=== PATIENT | female | born 1990 | race Caucasian/White ===

== ENCOUNTER 2016-12-01 08:00 | Inpatient (IN) | payer OTHER ==
[2016-12-01] MEDS ORDERED: CITRIC ACID/SODIUM CITRATE 30 ML UNIT-DOSE CUP PO ONE (08:24)
[2016-12-01] MEDS ORDERED: ELECTROLYTE-148 SOLN 500 ML IV ONE (08:24)
[2016-12-01] MEDS ORDERED: ELECTROLYTE-148 SOLN 1,000 ML IV SCH (08:30)
[2016-12-01 08:53] VITALS: BMI 36.6
--- NOTE | 2016-12-01 09:12 | HP ---
Past Medical History - Primary Care Physician PCP:: Olive Huff - Admission Chief Complaint: 26 yrs 39 weeks , previous c/sx2 requests for repeat c/ s & voluntory sterlization . History of Present Illness: PNC at , [facility] ,. wt gain 28 lbs work up: O pos, Hbsag neg, Rubella pos, Quant, neg, RPR nr, Hiv neg, Gbs neg , pap 12/06 neg . h/o PNGT 153. 3 hr GTT 135, 207, 192, 193 . GDM controlled by Diet & Po Glyburide 2.5 mg bid ( med started on 11/04/16) . MFM sono for serial growth were done & bgm monitoring, bpp & nst done by mfm office NT screen neg, Modified Sequential neg. 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 Weeks Gestation by Dates: 40.6 ...EDC by Dates: 11/25/16 ...EDC by Sono: 12/04/16 Heme/Onc: Yes: Anemia (po iron & pnv) Infectious Disease: No: STD's Psych: No: Addictions, Anxiety, Bipolar, Depression Endocrine: Yes: Other (GDM on diet & Po Glyburide). No: Diabetes Insipidus, Diabetes Mellitus, Hyperthyroidism, Hypothyroidism - Past Surgical History Past Surgical History: Yes: (04/2009, 12/2012) Hx Myomectomy: No Hx Transabdominal Cerclage: No - Smoking History Smoking history: Never smoked Have you smoked in the past 12 months: No Aproximately how many cigarettes per day: 0 - Alcohol/Substance Use Hx Alcohol Use: No History of Substance Use: reports: None - Social History History of Recent Travel: No Home Medications - Allergies Allergies/Adverse Reactions: Allergies Allergy/AdvReac Type Severity Reaction Status Date / Time No Known Allergies Allergy Verified 12/01/16 08:34 - Home Medications Home Medications: Ambulatory Orders Vit/Iron Fumarate/FA [ Tablet] 1 tab PO DAILY 07/28/16 Glyburide/Metformin HCl [Glyburide-Metformin 2.5-500 mg] 2.5 mg PO BID 12/01/16 Physical Exam - Maternity Vital Signs: Vital Signs Temperature 97.5 F L 12/01/16 08:46 Pulse Rate 70 12/01/16 08:46 Respiratory Rate 20 12/01/16 08:46 Blood Pressure 123/75 12/01/16 08:46 O2 Sat by Pulse Oximetry (%) Constitutional: Yes: Well Nourished, Obese Eyes: Yes: WNL HENT: Yes: WNL, Normocephalic Neck: Yes: WNL, Rigid Cardiovascular: Yes: Regular Rate and Rhythm Lungs: Clear to auscultation Breast(s): Yes: WNL - Abdominal Exam/OB Fundal Height: 40 Number of Fetuses: Single Presentation: Vertex Contractions: Yes Regularity: Irregular Intensity: Unaware Monitor Mode: External Heart Rate (range): 130 Heart Rate Location: Midline Category: I Accelerations: Uniform Decelerations: None - Vaginal Exam/OB Vaginal Bleediing: No Speculum Exam: No Dilatation (cm): close Effacement (%): unefface Presentation: Vertex/Position Station: -3 - Physical Exam Musculoskeletal: Yes: WNL Extremities: Yes: WNL. No: Calf Tenderness Edema: LLE: 1+, RLE: 1+ Integumentary: Yes: Incision (pfannensteil scar) Deep Tendon Reflex Grade: Normal +2 ...Motor Strength: WNL Psychiatric: Yes: WNL, Alert, Oriented - Labs Lab Results: Laboratory Tests 11/29/16 11/29/16 11/29/16 14:40 14:40 14:40 WBC 7.5 RBC 4.46 D Hgb 11.7 D Hct 35.7 D MCV 80.1 MCHC 32.7 RDW 15.5 Plt Count 137 Neutrophils % 75.4 Lymphocytes % 18.1 Monocytes % 5.9 Eosinophils % 0.3 D Basophils % 0.3 INR 1.02 Sodium Potassium Chloride Carbon Dioxide Anion Gap BUN Creatinine POC Glucometer Random Glucose AST ALT Urine Protein Negative Urine Glucose (UA) Negative Urine Ketones Negative RPR Titer 11/29/16 11/29/16 12/01/16 14:40 14:40 08:16 WBC RBC Hgb Hct MCV MCHC RDW Plt Count Neutrophils % Lymphocytes % Monocytes % Eosinophils % Basophils % INR Sodium 139 Potassium 4.1 Chloride 106 Carbon Dioxide 23 Anion Gap 10 BUN 11 D Creatinine 0.5 L POC Glucometer 72 Random Glucose 125 H AST 15 D ALT 18 Urine Protein Urine Glucose (UA) Urine Ketones RPR Titer Nonreactive Problem List - Problems (1) with 39 completed weeks gestation Code(s): Z3A.39 - 39 WEEKS GESTATION OF (2) Previous section complicating Code(s): O34.21 - MATERNAL CARE FOR SCAR FROM PREVIOUS * DO NOT USE * (3) Gestational diabetes mellitus (GDM) controlled on oral hypoglycemic drug Code(s): O24.419 - GESTATIONAL DIABETES MELLITUS IN , UNSP CONTROL Qualifiers: Trimester: third trimester Qualified Code(s): O24.419 - Gestational diabetes mellitus in , unspecified control (4) Multiparity Code(s): Z64.1 - PROBLEMS RELATED TO MULTIPARITY Assessment/Plan 39 weeks, previousc/sx2, voluntory sterlization Plan repeat c/section & BTL
[2016-12-01] MEDS ORDERED: IBUPROFEN 800 MG/8 ML IJ IVPB PRN (11:43)
[2016-12-01] MEDS ORDERED: METHYLERGONOVINE MALEATE 0.2 MG/1 ML AMP IM PRN (11:43)
[2016-12-01] MEDS ORDERED: ONDANSETRON 4 MG/2 ML VIAL IVPB PRN (11:53)
--- NOTE | 2016-12-01 11:55 | PN ---
Delivery - Delivery Section: Repeat, Low Flap Transverse (BTL, Lysis of Omental adhesions) Type of Anesthesia: Spinal Episiotomy/Laceration: None EBL (cc): 500 (hemphill out put 200 ml nerissa color ) Delivery, Single - Stages of Labor Date of Delivery: 12/01/16 Time of Delivery: 10:55 Time Placenta Delivered: 10:56 Placenta: Yes: Manual Removal, Uterine Exploration - Condition of Infant Plumbing And Heating Mechanic/Building Maintenance Technician Present: Yes Name: Groening,Jesenia Gender: Female Weight: 8 lb 10 oz Position: Right, OT Total Hours ROM (Hrs/Mins): 0hrs 2min - 1 Minute Total Score: 9 5 Minutes Total Score: 9 - Feeding Plan Initial Plan: Elected not to breastfeed exclusively throughout hospitalization Remarks - Remarks Remarks: 26 yrs : ( Indication ) 39 weeks iup, previous c/sx2, Multiparity , requests repeat c/s & voluntory sterlization .. PNC at [address] [place] [address] . gbs neg GDM controlled with diet & Glyburide 2.5 mg po bid
--- NOTE | 2016-12-01 12:00 | OP ---
Operative Note - Note: Operative Date: 12/01/16 Pre-Operative Diagnosis: 39 weeks, Previous C/Sx2, Multiparity,requests for repeat c/s Operation: Repeat LFTC/S + BTL Findings: 10.55am Baby Girl, 9/9 , wt 8'10" , Ht 20" . both tubes & ovaries normal both tubes were ligated twice with plain 2/0 plain catgut , portion above ligature cut & sent for pathology . Omental adhesions to parietal peritoneum & bladder peritoneum were lysed Surgeon: Olive Huff Branch Associate Teller: Tom Wheeler Anesthesiologist/FORMING PRESS OPERATOR: Satish Cat Anesthesia: Spinal Specimens Removed: placenta. cord blood Estimated Blood Loss (mls): 500 Drains, Volume Out (mls): 200 (hemphill output, nerissa color ) Fluid Volume Replaced (mls): 2,200 (iv Ancef prior to incision was given ) Operative Report Dictated: Yes
[2016-12-01] MEDS ORDERED: OXYTOCIN 20 UNITS in 0.9% NS 1,000 ML IV SCH (12:15)
[2016-12-01] MEDS ORDERED: morphine SULFATE/Preservative Free 0.5 MG/ML (1cc Syringe) SPIN ONE (12:15)
[2016-12-01] MEDS ORDERED: CEFAZOLIN 1 GM/D5W 50 ML IVPB SCH (18:00)
[2016-12-01] MEDS: CEFAZOLIN (PRE-DOCKED) 50 ML IVPB SCH (18:03)
--- NOTE | 2016-12-01 18:39 | OP ---
DATE OF OPERATION: 12/01/2016 PREOPERATIVE DIAGNOSIS: At 39 weeks; previous section x2; multiparity; request for repeat section. OPERATION DONE: Repeat low-flap transverse section and bilateral tubal ligation and lysis of omental adhesions. SURGEON: Olive Huff MD GAS ENGINE OPERATOR SURGEON: MEETA Michaud ANESTHESIOLOGIST: Satish Cat MD ANESTHESIA: Spinal. FINDINGS: This is a 26-year-old, 4, para 2-0-1-2, previous 2 sections, not in labor, and patient is obese, weight is 213 pounds. PROCEDURE: Patient taken to operating room table and abdomen was shaved, prepped, Mccoy catheter was placed. Spinal anesthesia was given. She was placed in supine position. The abdomen was painted with ChloraPrep and draped in the usual manner and then Pfannenstiel incision was made through previous scar, skin, subcutaneous tissue. Anterior rectus sheath was incised transversely. Bleeding points were clamped and cauterized. Rectus muscle was from the rectus sheath and then parietal peritoneum was opened vertically. There were omental adhesions around the parietal peritoneum in the left side, which were clamped, cut and ligated and the omentum was pushed down and the lower segment was straightened, cleared off, and lower segment peritoneum was incised transversely and the bladder was pushed down and amniotic fluid was cleared. Baby was delivered from ROT position at 10:55 a.m. was 9 and 9, baby girl. The baby's weight is [address] Jay, the assistant case manager, was present in the room. Placenta was removed completely with the membranes. Before placenta removed, cord blood was collected and sent to the lab. The uterine cavity was cleaned and then uterine incision was closed in 2 layers, 1st layer with a continuous locking with Biosyn 0 suture, 2nd layer was closed with continuous locking suture and vertical mattress sutures were taken in 2nd layer. Hemostasis was noted and then omental adhesion from the bladder peritoneum, lysis was done by clamping and cutting, and then also from the right side, the parietal peritoneum also omental adhesions were lysis was done by clamping, cutting and ligating. Irrigation was done and both ovaries were normal. Sponge, instrument, needle count was correct. Before closure, both the tubes were ligated and cut. First the right side tube, it was in the mid ampullary portion the tube was doubly ligated with a plain 2-0 catgut and a portion of the tube was cut, sent for pathology. Endosalpinx was cauterized. Similar procedure was done also on the right tube. Hemostasis was noted. The sponge, instrument, needle count was correct. Closure of the abdominal wall was done. Parietal peritoneum was closed with Vicryl suture. Muscles were approximated together with a Biosyn 0 suture with interrupted sutures, and then the bleeding was checked underneath the rectus sheath flaps. Rectus sheath was closed with 0 Vicryl 0 continuous suture. Then the subcutaneous tissue, interrupted sutures were taken with a Biosyn 0 suture and the skin was approximated with iggy. Pressure dressing was given. Blood clots were removed from the vagina. Patient tolerated procedure well. She was transferred to the recovery room in stable condition. She received IV Ancef 1 g prior to the incision. Estimated blood loss was 500 mL. The intraoperative urine output was 200 mL and it was nerissa color. Fuad [id number]
[2016-12-02] MEDS: CEFAZOLIN (PRE-DOCKED) 50 ML IVPB SCH ×2 (01:32→09:08)
[2016-12-02 07:04] LABS: BASOPHIL 0.4 % (0-2.0); EOSINOPHIL 0.3 % (0-4.5); MCH 26.4 pg (25.7-33.7); MCHC 33.2 g/dl (32.0-36.0); MEAN CELL VOLUME 79.4 fl (80-96); MEAN PLT VOLUME 10.1 fl (7.5-11.1); NEUTROPHILS 81.5 % (42.8-82.8); PLATELET COUNT 127 K/MM3 (134-434); RDW 15.4 % (11.6-15.6); WHITE BLOOD COUNT 9.9 K/mm3 (4.0-10.0)
--- NOTE | 2016-12-02 07:59 | PN ---
Progress Note (short form) - Note Progress Note: Anesthesia POD#1 Repeat with BTL under spinal & DM Patient is in the chair,pain is under control,no N/V, Extremities are mobile, some itch is still present. A/P No complications to anesthesia seen. Skye Jiang..
[2016-12-02] MEDS ORDERED: oxyCODONE HCL 5 MG TABLET PO PRN ×2 (08:00→11:43)
[2016-12-02] MEDS: ENOXAPARIN NA (PORCINE) 40 MG/0.4 ML DISP.SYRIN SQ SCH (09:08)
[2016-12-02] MEDS: PRENATAL VITAMINS W/ FOLIC ACID TABLET (FP) PO SCH (09:14)
[2016-12-02] MEDS ORDERED: BISACODYL 10 MG SUPP.RECT RC PRN (11:43)
[2016-12-02] MEDS: ACETAMINOPHEN 325 MG TABLET (FP) PO PRN ×3 (12:06→22:36)
[2016-12-02] MEDS: SIMETHICONE 80 MG TAB.CHEW (FP) PO PRN ×3 (12:07→22:35)
[2016-12-02] MEDS: IBUPROFEN 600 MG TABLET (FP) PO PRN ×3 (12:08→22:36)
--- NOTE | 2016-12-02 13:26 | PN ---
Progress Note (short form) - Note Progress Note: pod 1 doing well, CBC, BMP 12/02/16 06:40 Last Vital Signs Temp Pulse Resp BP Pulse Ox 97.9 F 78 20 106/48 100 12/02/16 10:00 12/02/16 10:00 12/02/16 11:00 12/02/16 10:00 12/01/16 13:15 abdomen soft, no distension, no cva incision dry, no discharge no calf tenderness no excess vaginal bleeding plan ambulate, advance diet pain management
[2016-12-02] MEDS: FERROUS SO4 325 MG TABLET (FP) PO SCH (22:35)
[2016-12-02] MEDS: SENNOSIDES/DOCUSATE COMBO (SENNA PLUS) TABLET (UD) PO PRN (22:36)
[2016-12-03] MEDS: SIMETHICONE 80 MG TAB.CHEW (FP) PO PRN ×5 (03:58→21:24)
[2016-12-03] MEDS: IBUPROFEN 600 MG TABLET (FP) PO PRN ×5 (03:58→21:25)
[2016-12-03] MEDS: ACETAMINOPHEN 325 MG TABLET (FP) PO PRN ×5 (03:59→21:24)
--- NOTE | 2016-12-03 07:50 | PN ---
Post Progress Note - Subjective Subjective: no complains of pain, scale 5/10 . voiding without difficulty Post Day: 2 Type of Delivery: Repeat C/S Vital Signs: Vital Signs Temperature 97.9 F 12/02/16 20:28 Pulse Rate 85 12/02/16 20:28 Respiratory Rate 18 12/02/16 20:28 Blood Pressure 117/49 12/02/16 20:28 O2 Sat by Pulse Oximetry (%) 100 12/01/16 13:15 Breast Exam: Yes: Soft, Other (BF ). No: Engorged Uterus: Yes: Fundus Firm, Fundus below umbilicus, Non-tender Incision: Yes: Amy intact. No: Redness, Oozing Abdomen/GI: Yes: Abdomen soft, Passing flatus, Tolerating PO (reg diet). No: Abdominal Distention, Tender Lochia: Yes: Rubra Lochia, amount: Moderate Extremities: Yes: Calves non-tender Perineum: Yes: Intact Activity: Ambulating - Labs Labs: CBC WBC 9.9 K/mm3 (4.0-10.0) D 12/02/16 06:40 RBC 4.52 M/mm3 (3.60-5.2) 12/02/16 06:40 Hgb 11.9 GM/dL (10.7-15.3) 12/02/16 06:40 Hct 35.9 % (32.4-45.2) 12/02/16 06:40 MCV 79.4 fl (80-96) L 12/02/16 06:40 MCHC 33.2 g/dl (32.0-36.0) 12/02/16 06:40 RDW 15.4 % (11.6-15.6) 12/02/16 06:40 Plt Count 127 K/MM3 (134-434) L 12/02/16 06:40 MPV 10.1 fl (7.5-11.1) 12/02/16 06:40 Neutrophils % 81.5 % (42.8-82.8) 12/02/16 06:40 Lymphocytes % 12.2 % (8-40) D 12/02/16 06:40 Monocytes % 5.6 % (3.8-10.2) 12/02/16 06:40 Eosinophils % 0.3 % (0-4.5) 12/02/16 06:40 Basophils % 0.4 % (0-2.0) 12/02/16 06:40 Problem List - Problems (1) with 39 completed weeks gestation Code(s): Z3A.39 - 39 WEEKS GESTATION OF (2) Previous section complicating Code(s): O34.21 - MATERNAL CARE FOR SCAR FROM PREVIOUS * DO NOT USE * (3) Gestational diabetes mellitus (GDM) controlled on oral hypoglycemic drug Code(s): O24.419 - GESTATIONAL DIABETES MELLITUS IN , UNSP CONTROL Qualifiers: Trimester: third trimester Qualified Code(s): O24.419 - Gestational diabetes mellitus in , unspecified control (4) Multiparity Code(s): Z64.1 - PROBLEMS RELATED TO MULTIPARITY Assessment/Plan stable plan ct po care , requests for discharge tomorrow.
[2016-12-03] MEDS: FERROUS SO4 325 MG TABLET (FP) PO SCH ×2 (09:34→21:18)
[2016-12-03] MEDS: PRENATAL VITAMINS W/ FOLIC ACID TABLET (FP) PO SCH (09:34)
[2016-12-03] MEDS: ENOXAPARIN NA (PORCINE) 40 MG/0.4 ML DISP.SYRIN SQ SCH (09:34)
[2016-12-03] MEDS: SENNOSIDES/DOCUSATE COMBO (SENNA PLUS) TABLET (UD) PO PRN (21:18)
[2016-12-04] MEDS: ACETAMINOPHEN 325 MG TABLET (FP) PO PRN ×3 (01:26→12:11)
[2016-12-04] MEDS: IBUPROFEN 600 MG TABLET (FP) PO PRN ×3 (01:27→12:12)
[2016-12-04] MEDS: SIMETHICONE 80 MG TAB.CHEW (FP) PO PRN ×2 (01:27→09:02)
--- NOTE | 2016-12-04 08:06 | PN ---
Progress Note (short form) - Note Progress Note: pod4 doing well , no c/o BGM kera CBC, BMP 12/02/16 06:40 Last Vital Signs Temp Pulse Resp BP Pulse Ox 98.5 F 74 18 114/64 100 12/03/16 22:20 12/03/16 22:20 12/03/16 22:20 12/03/16 22:20 12/01/16 13:15 abdomen soft, no distension, no cva incision dry, claen no calf tenderness no excess vaginal bleeding pt wants to go home today will rtc on Thursday for staple removal . low carb diet
[2016-12-04 08:39] LABS: BASOPHIL 0.6 % (0-2.0); EOSINOPHIL 1.8 % (0-4.5); MCHC 32.1 g/dl (32.0-36.0); MEAN CELL VOLUME 80.9 fl (80-96); NEUTROPHILS 75.1 % (42.8-82.8); PLATELET COUNT 151 K/MM3 (134-434); RDW 15.4 % (11.6-15.6); WHITE BLOOD COUNT 7.6 K/mm3 (4.0-10.0)
[2016-12-04] MEDS: PRENATAL VITAMINS W/ FOLIC ACID TABLET (FP) PO SCH (09:01)
[2016-12-04] MEDS: FERROUS SO4 325 MG TABLET (FP) PO SCH (09:01)
[2016-12-04] MEDS: ENOXAPARIN NA (PORCINE) 40 MG/0.4 ML DISP.SYRIN SQ SCH (09:02)
--- NOTE | 2016-12-04 09:45 | PN ---
Post Progress Note - Subjective Subjective: Doing well, no complaints. Tolerating PO, ambulating, passing flatus. pain well controlled. Denies N/V/SOB/CP Type of Delivery: Repeat C/S Vital Signs: Vital Signs Temperature 98.5 F 12/03/16 22:20 Pulse Rate 74 12/03/16 22:20 Respiratory Rate 18 12/03/16 22:20 Blood Pressure 114/64 12/03/16 22:20 O2 Sat by Pulse Oximetry (%) 100 12/01/16 13:15 Breast Exam: Yes: Soft Uterus: Yes: Fundus Firm, Fundus below umbilicus Incision: Yes: Amy intact Abdomen/GI: Yes: Abdomen soft Lochia: Yes: Rubra Lochia, amount: Small Extremities: Yes: Calves non-tender Perineum: Yes: Intact Activity: Ambulating - Labs Labs: CBC WBC 7.6 K/mm3 (4.0-10.0) 12/04/16 08:00 RBC 3.99 M/mm3 (3.60-5.2) 12/04/16 08:00 Hgb 10.4 GM/dL (10.7-15.3) L D 12/04/16 08:00 Hct 32.2 % (32.4-45.2) L 12/04/16 08:00 MCV 80.9 fl (80-96) 12/04/16 08:00 MCHC 32.1 g/dl (32.0-36.0) 12/04/16 08:00 RDW 15.4 % (11.6-15.6) 12/04/16 08:00 Plt Count 151 K/MM3 (134-434) 12/04/16 08:00 MPV 10.0 fl (7.5-11.1) 12/04/16 08:00 Neutrophils % 75.1 % (42.8-82.8) 12/04/16 08:00 Lymphocytes % 17.3 % (8-40) D 12/04/16 08:00 Monocytes % 5.2 % (3.8-10.2) 12/04/16 08:00 Eosinophils % 1.8 % (0-4.5) D 12/04/16 08:00 Basophils % 0.6 % (0-2.0) 02/23/17 08:00 Assessment/Plan 26yo POD#3 s/p R C/S, doing well. VSS. AF. Hct stable. -continue routine postop care -ambulate -regular diet -motrin prn pain -requesting d/c home today -f/u in clinic 12/09 for staple removal
[2016-12-04 09:50] VITALS: BP 132/74; PULSE 71; TEMP 98.6
--- NOTE | 2016-12-04 15:51 | DS ---
Physical Exam-[facility] Vital Signs: Vital Signs Temperature 98.6 F 12/04/16 09:47 Pulse Rate 71 12/04/16 09:47 Respiratory Rate 18 12/04/16 09:47 Blood Pressure 132/74 12/04/16 09:47 O2 Sat by Pulse Oximetry (%) 100 12/01/16 13:15 Constitutional: Yes: Well Nourished, Obese Eyes: Yes: WNL HENT: Yes: WNL Neck: Yes: WNL Cardiovascular: Yes: WNL Respiratory: Yes: WNL Gastrointestinal: Yes: WNL, Normal Bowel Sounds, Soft, Other (bm done.). No: Distention ....Post : Yes: Uterus firm, Uterus non-tender, Moderate lochia rubra Breast(s): Yes: WNL (BF) Musculoskeletal: Yes: WNL Extremities: Yes: WNL. No: Calf Tenderness Edema: Yes Edema: LLE: 1+, RLE: 1+ Wound/Incision: Yes: Clean/Dry, Well Approximated, [place] Intact, Open to air. No: Draining, Reddened, Bleeding Neurological: Yes: WNL, Alert, Oriented ...Motor Strength: WNL Psychiatric: Yes: WNL, Alert, Oriented Labs: CBC, BMP 12/04/16 08:00 Delivery - Delivery Section: Repeat, Low Flap Transverse (BTL, Lysis of Omental adhesions) Type of Anesthesia: Spinal Episiotomy/Laceration: None EBL (cc): 500 (hemphill out put 200 ml nerissa color ) Delivery, Single - Stages of Labor Date of Delivery: 12/01/16 Time of Delivery: 10:55 Time Placenta Delivered: 10:56 Placenta: Yes: Manual Removal, Uterine Exploration - Condition of Infant Head Of History/Adapted Physical Education Aide Present: Yes Name: Groening,Jesenia Gender: Female Weight: 8 lb 10 oz Position: Right, OT Total Hours ROM (Hrs/Mins): 0hrs 2min - 1 Minute Total Score: 9 5 Minutes Total Score: 9 - Mora Feeding Plan Initial Plan: Elected not to breastfeed exclusively throughout hospitalization Remarks - Remarks Remarks: 26 yrs : ( Indication ) 39 weeks iup, previous c/sx2, Multiparity , requests repeat c/s & voluntory sterlization .. PNC at [address] [place] [address] . gbs neg GDM controlled with diet & Glyburide 2.5 mg po bid . post op course uneventful, . bgm wnl. instructed to check BGM twice a week fasting or pp. do 75 gm Gtt in 3 months discharge today to be followed in the clinic on Thursday for iggy removal. Discharge Summary Reason For Visit: C SEC Condition: Stable - Instructions Diet, Activity, Other Instructions: Post Instructions DIET: Continue good diet high in protein, calcium, and iron rich foods. Drink at least eight (8) glasses of water daily in addition to other fluids. Ct Diabetic Diet MEDICATIONS: Continue vitamins and iron as previously directed. Motrin and Tylenol may be taken for minor discomfort. ACTIVITY: Mild to moderate exercise may be started in two (2) weeks. Take frequent rest periods. Resume normal activity after six (6) week check up. WOUND CARE OF OPERATIVE SITE: Continue use of perineal bottle until vaginal discharge stops. Keep area clean. Shower daily. Keep abdominal wound dry. Report any drainage or redness to physician. Tub baths, tampons and douches are not permitted for [address] Breast feeding & or Bottle feeding BREAST CARE: (For those that are not breast feeding): If engorgement occurs: Wear tight fitting bra. Take Tylenol or Motrin for pain. Apply cold packs (ice in bags to each breast ) FAMILY PLANNING: There are many control alternatives to pursue and they should be discussed at your first office visit. You may resume sexual activity after your six (6) week check up. (Remember, breast feeding is not a contraceptive) NEXT PHYSICIAN APPOINTMENT: Be certain to call for a one (1) week appointment, unless otherwise directed. , Call clinic [phone] for appt on 12/09/16 for iggy removal Call Clinic or got to Emergency Dept if you have any of the following: Heavy vaginal bleeding Painful urination Leg pain Unusual odor noted to vaginal bleeding High fever Red streaking noted on breast Referrals: Olive Huff MD [Staff Physician] - (follow thu Feburary for iggy removal.) Disposition: HOME - Home Medications Comprehensive Discharge Medication List: Ambulatory Orders Vit/Iron Fumarate/FA [ Tablet] 1 tab PO DAILY 07/28/16 Acetaminophen [Tylenol .Regular Strength -] 650 mg PO Q4H PRN #0 tablet Ibuprofen [Motrin -] 600 mg PO Q4H PRN #30 tablet 12/03/16 Vitamins (Sjr) - 1 tab PO DAILY tablet 12/03/16 Docusate Sodium [Colace -] 100 mg PO DAILY #30 capsule 12/04/16
--- NOTE | 2016-12-05 13:53 | PATH ---
Surgical Pathology Report Patient Name: [facility]. Rec. #: [id number] /Age/Gender: 1990 (Age: 26) / F Account: [id number] Location: [facility] OBS/AUTOMATION TECH Taken: 12/01/2016 Received: 12/02/2016 Reported: 12/05/2016 Physicians: Olive Huff M.D. Specimen(s) Received A: PLACENTA B: PORTION LEFT FALLOPIAN TUBE C: PORTION RIGHT FALLOPIAN TUBE Clinical History , gestational diabetic, c/section x2 Repeat c/section Final Diagnosis A. PLACENTA, DELIVERY: FOCALLY DISRUPTED THIRD TRIMESTER PLACENTA WITH MILDLY INCREASED PREVILLOUS, PERIVILLOUS, AND PRECHORIONIC FIBRIN DEPOSITION, FOCAL CALCIFICATIONS, THREE VESSEL UMBILICAL CORD, AND PLACENTAL MEMBRANES FOCAL AMNION HYPERPLASIA. B. PORTION OF FALLOPIAN TUBE, LEFT, LIGATION: SEGMENT OF FALLOPIAN TUBE WITH COMPLETE CROSS SECTION. C. PORTION OF FALLOPIAN TUBE, RIGHT, LIGATION: SEGMENT OF FALLOPIAN TUBE WITH COMPLETE CROSS SECTION. Electronically Signed Jerrell Johnson M.D. Gross Description A. The specimen is received fresh, labeled "placenta" and is a 662 gram, 20.0 x 15.0 x 3.1 cm placenta with attached membranes and umbilical cord. The attached membranes are booker, translucent with focal opacities and insert marginally. The umbilical cord measures 39 cm in length and averages 1.1 cm in diameter. The cord inserts eccentrically, 5.0 cm to the nearest margin. No true knots or strictures are identified. Cut surface of the umbilical cord reveals 3 vessels. The surface is solano-blue with fibrin deposition and appropriate caliber vessels. The maternal surface is red-brown with focal defects. Sectioning reveals red-brown, spongy parenchyma. No lesions are identified. Mems Process Engineer sections are submitted in three cassettes as follows: 1- membrane rolls and umbilical cord; 2-3- full thickness sections of placenta. B. Received in formalin, labeled "portion of left fallopian tube" is a 1.0 cm in length portion of fallopian tube. No fimbria are present. The outer surface is booker-gomez and smooth. Sectioning reveals a pinpoint lumen. Mems Process Engineer sections are submitted in one cassette. C. Received in formalin, labeled "portion of right fallopian tube" is a 1.1 cm in length portion of fallopian tube. No fimbria are present. The outer surface is booker-gomez and smooth. Sectioning reveals a pinpoint lumen. Mems Process Engineer sections are submitted in one cassette. 12/04/[address] [facility]12/04/2016
== END 2016-12-04 13:21 | disposition home or self-care (01) | DRG 540 ==
LOC: JLDR 08:00 → J3W 13:16
PROVIDERS: ADMIT Obstetrics & Gynecology; ATTEND Obstetrics & Gynecology
PROC: 10D00Z1 Extraction of Products of Conception, Low, Open Approach (ICD-10-PCS; principal; 2016-12-01)
PROC: 0UL70ZZ Occlusion of Bilateral Fallopian Tubes, Open Approach (ICD-10-PCS; 2016-12-01)
PROC: 0DNW0ZZ Release Peritoneum, Open Approach (ICD-10-PCS; 2016-12-01)
DX: O34.211 Maternal care for low transverse scar from previous cesarean delivery (principal); O24.429 Gestational diabetes mellitus in childbirth, unspecified control; O99.62 Diseases of the digestive system complicating childbirth; O99.214 Obesity complicating childbirth; K66.0 Peritoneal adhesions (postprocedural) (postinfection); Z30.2 Encounter for sterilization; Z3A.39 39 weeks gestation of pregnancy; Z37.0 Single live birth; Z64.1 Problems related to multiparity
CPT/HCPCS: 36415; 85025; 88302-TC; 88307-TC

== ENCOUNTER 2018-08-15 09:48 | Emergency (ER) | payer OTHER ==
[2018-08-15 09:57] VITALS: BMI 33.5
[2018-08-15] MEDS ORDERED: CYCLOBENZAPRINE HCL 5 MG TABLET PO ONE (10:40)
[2018-08-15] MEDS ORDERED: ACETAMINOPHEN 325 MG TABLET (FP) PO ONE (10:40)
--- NOTE | 2018-08-15 10:40 | PDOC ---
History of Present Illness - General Chief Complaint: Pain Stated Complaint: BACK PAIN Time Seen by Provider: 08/15/18 10:11 History Source: Patient, [employer] Custodian Used Exam Limitations: No Limitations - History of Present Illness Initial Comments: 08/15/18 10:38 Ms Howard is a 27 YOF with no medical history p/w upper back pain radiating down right side to abdomen and upper back x 1 week. upper thoracic back pain radiates down to right side of abdomen. yesterday she noted subjective fevers and chills. now more RLQ and right sided abdominal pain. denies trauma or strenuous activity/falls, exacerbating or alleviating factors. +clear vaginal discharge, urgency and frequency. has been taking OTC vaginal antifungal cream w/o relief. LMP 07/28/18, usually regular, denies . +nausea, +chest pain with cough and mild sob. no vomiting, diarrhea or constipation. No sick contacts or travel. PSH: C sections No meds denies tobacco or ETOH use. 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, Surya Huizar #[id number] 08/15/18 10:45 08/15/18 15:07 Past History - Past Medical History Allergies/Adverse Reactions: Allergies Allergy/AdvReac Type Severity Reaction Status Date / Time No Known Allergies Allergy Verified 08/15/18 09:52 Home Medications: Ambulatory Orders Cyclobenzaprine HCl [Flexeril 10 mg] 10 mg PO TID PRN #15 tablet 08/15/18 Asthma: No Cancer: No Cardiac Disorders: No COPD: No Diabetes: Yes (gestational) HTN: No Seizures: No Thyroid Disease: No - Surgical History Abdominal Surgery: Yes (c section x 2) - Reproductive History (#): 2 Para: 1 - Suicide/Smoking/Psychosocial Hx Smoking Status: No Smoking History: Never smoked Have you smoked in the past 12 months: No Number of Cigarettes Smoked Daily: 0 Hx Alcohol Use: No Drug/Substance Use Hx: No Hx Substance Use Treatment: No Review of Systems - Review of Systems Able to Perform ROS?: Yes Comments:: 08/15/18 10:44 Constitutional: +subjective fevers or chills. HEENT: +headache or dizziness. +congestion. No visual/hearing disturbances. CVS: no syncope. +chest pain Resp: +cough and sob. Abdomen: +abdominal pain, nausea. No diarrhea or vomiting. Genitourinary: no hematuria. +dysuria, urgency and frequency. +clear Vaginal discharge. MUSCULOSKELETAL: No joint pain and swelling. No neck pain. +back pain SKIN: no redness or skin changes, no discharge, no rash. No wounds. Hematologic: no easy bruising/bleeding. NEUROLOGIC: + headache, dizziness, No LOC or altered mental status. No weakness , numbness or tingling. All other systems reviewed and negative, or as documented in HPI. *Physical Exam - Vital Signs Last Vital Signs Temp Pulse Resp BP Pulse Ox 97.9 F 67 18 115/67 99 08/15/18 09:49 08/15/18 09:49 08/15/18 09:49 08/15/18 09:49 08/15/18 09:49 - Physical Exam Comments: 08/15/18 10:43 General: Well appearing, awake and alert, NAD. HEENT: NCAT, PERRL, EOMI, clear conjunctiva, anicteric, moist mucus membranes, clear oropharynx, no oral lesions.. Neck: neck supple, FROM Resp: CTAB, normal and even respirations, no respiratory distress CVS: RRR, no murmurs, 2+ peripheral pulses throughout, no peripheral edema Abdomen: soft, obese. +RLQ and suprapubic TTP; no Guzman's sign. Back: +upper thoracic and diffuse paravertebral TTP. normal inspection and ROM. No CVAT MSK: no edema, MORTON x4, ROM intact. No clubbing or cyanosis. normal bulk and tone. Extrem: no calf tenderness Neuro: alert, oriented appropriately; no focal neurologic deficits Skin: warm and well perfused, cap refill <2 sec, normal color Heart Score/ECG Review - ECG Impressions Normal ECG: Yes Comment:: 08/15/18 14:59 EKG normal sinus rhythm, no interval abnormalities, narrow QRS, ST and T wave segments and morphology normal. Nonspecific T wave abnormalities in III, otherwise wnl, nonischemic ED Treatment Course - LABORATORY CBC & Chemistry Diagram: 08/15/18 11:11 08/15/18 11:11 Medical Decision Making - Medical Decision Making 08/15/18 14:59 DDx abdominal pain: Renal colic, ureterolithiasis, biliary colic, metabolic/ electrolyte derangements. GERD, PUD, esophageal spasm, pancreatitis, hepatitis, constipation, colitis, gastroenteritis, cholecystitis, UTI, pyelonephritis, hernia, appendicitis, diverticulitis, ovarian cyst, ovarian torsion, TOA, appy, UTI, pyelonephritis, Mittelschmerz, back strain/spasms. Clinically doubt ovarian pathology, low suspicion for torsion or pelvic pathology. Vital signs reviewed, wnl. no fevers here, nontoxic appearing. Prior notes reviewed, including admissions, discharges and consultations. laboratory results and imaging reviewed, basic labs and lytes wnl, normal LFTs and lipase. Neg preg test. UA_neg for infection, no blood so doubt renal colic or obstructed stone.. CXR_ clear EKG normal sinus rhythm, no interval abnormalities, narrow QRS, ST and T wave segments and morphology normal. Nonspecific T wave abnormalities in III, otherwise wnl, nonischemic ED course: no acute events, remained stable and well appearing. Clinically improved after interventions, including tylenol and flexeril, IVF. CT a/p to r/o appy primarily; normal appendix, umbilical hernia, uncomplicated; no intra abdominal pathology noted. On reeval, feels improved, pain controlled, eager for discharge. ambulatory w/o difficulty. Dispo: Pt to be discharged in stable condition. Patient and family made aware of impression and plan, return precautions discussed (including but not limited to worsening pain or symptoms), fevers, or signs of infection, chest pain, respiratory distress, inability to tolerate oral intake, dehydration, syncope, or neurologic changes). Follow up with PMD and/or specialist as recommended, follow up information provided, take medications as instructed for duration of time. continue with supportive care, avoid triggers and precipitants. All questions answered to patient's satisfaction and expressed understanding and comfort with this. information provided in Georgian 08/15/18 14:59 08/15/18 15:00 *DC/Admit/Observation/Transfer Diagnosis at time of Disposition: Abdominal pain, Back pain - Discharge Dispostion Disposition: HOME Condition at time of disposition: Improved Decision to Admit order: No - Prescriptions Prescriptions: Cyclobenzaprine HCl [Flexeril 10 mg] 10 mg PO TID PRN #15 tablet PRN Reason: Muscle Spasms - Referrals Referrals: [facility] [Provider Group] [facility] [Provider Group] - Patient Instructions Printed Discharge Instructions: DI for Abdominal Pain-Adult, DI for Thoracic Back Pain, DI for Low Back Pain Additional Instructions: Your laboratory / imaging results were normal, CT scan did show normal appendix , no infection or inflammation or abnormalities. you have a belly button hernia that is fat containing and unremarkable. your urine was negative for infection, test normal. Follow up with your physician and consultants as instructed, take your medications as instructed including flexeril three times a day as needed for back spasms and pain. may also take over the counter tylenol and motrin for pain as well. Return if worsening symptoms including fevers, headache, vomiting, visual or hearing disturbances, abdominal pain, chest pain, shortness of breath, syncope, dehydration, inability to take things by mouth/vomiting, altered mental status, or worsening concerning symptoms. your medications on discharge include_ side effects may include upset stomach, abdominal pain, vomiting, or diarrhea, dizziness and feeling tired. do no drive or work while taking flexeril as you can feel dizzy and sleepy. do not drink alcohol with your medications. Coco resultados de laboratorio / imagenologa fueron normales, la tomografa computarizada mostr apndice normal, sin infeccin o inflamacin o anomalas. Usted tiene shaheen hernia de ombligo que contiene grasa y es poco destacable. Floyd orina fue negativa para infeccin, prueba de embarazo normal. Radha un seguimiento con floyd mdico y consultores segn las instrucciones, tome coco medicamentos segn las instrucciones, incluido flexeril elliot veces al da, segn sea necesario para los espasmos y el dolor de espalda. Tambin puede shaun el contador de tylenol y motrin para el dolor tambin. Regrese si los sntomas empeoran, incluyendo fiebre, dolor de tamiko, vmitos, trastornos visuales o auditivos, dolor abdominal, dolor de pecho, falta de aliento, sncope, deshidratacin, incapacidad para shaun cosas por la boca / vmitos, estado mental alterado o empeoramiento de los sntomas. coco medicamentos en el momento del mayank incluyen efectos secundarios que pueden incluir malestar estomacal, dolor abdominal, vmitos o diarrea, mareos y cansancio. no conduzca ni trabaje mientras samanta flexeril, ya que puede sentirse mareado y con sueo. No tome alcohol con coco medicamentos. - Post Discharge Activity Forms/Work/School Notes: Back to Work
[2018-08-15] MEDS ORDERED: SODIUM CHLORIDE 0.9% 500 ML INFUS.BAG IV ONE (10:41)
[2018-08-15 11:21] LABS: BASO % 0.5 % (0-2.0); HEMATOCRIT 37.8 % (32.4-45.2); HEMOGLOBIN 12.9 GM/dL (10.7-15.3); LYMPH % 22.9 % (8-40); MCH 28.3 pg (25.7-33.7); MCHC 34.1 g/dl (32.0-36.0); MEAN PLT VOLUME 10.4 fl (7.5-11.1); MONO % 6.4 % (3.8-10.2); NEUT % 69.2 % (42.8-82.8); PLATELET COUNT 203 K/MM3 (134-434); RBC 4.56 M/mm3 (3.60-5.2); RDW 13.7 % (11.6-15.6); WHITE BLOOD COUNT 6.4 K/mm3 (4.0-10.0)
[2018-08-15 11:22] LABS: URINE APPEARANCE CLEAR; URINE BILIRUBIN NEGATIVE (<2.0 mg/dL); URINE COLOR STRAW; URINE GLUCOSE (UA) NEGATIVE (NEGATIVE); URINE KETONE NEGATIVE (NEGATIVE); URINE LEUK ESTERASE NEGATIVE (NEGATIVE); URINE NITRITE NEGATIVE (NEGATIVE); URINE PROTEIN NEGATIVE (NEGATIVE); URINE UROBILINOGEN NEGATIVE mg/dL (0.2-1.0)
[2018-08-15 11:41] LABS: ALBUMIN 3.6 g/dl (3.4-5.0); ALK PHOS 86 U/L (45-117); ANION GAP 5 MMOL/L (8-16); BILIRUBIN,TOTAL 0.3 mg/dL (0.2-1); BLOOD UREA NITROGEN 7 mg/dL (7-18); CALCIUM 8.6 mg/dL (8.5-10.1); CHLORIDE 106 mmol/L (98-107); CO2 28 mmol/L (21-32); CREATININE 0.5 mg/dL (0.55-1.3); GLUCOSE,RANDOM 87 mg/dL (74-106); LIPASE 95 U/L (73-393); SGOT/AST 12 U/L (15-37); SGPT/ALT 19 U/L (13-61); SODIUM 140 mmol/L (136-145); TOT PROT 6.9 g/dl (6.4-8.2)
[2018-08-15 16:20] VITALS: BP 130/72; PULSE 79; TEMP 98
--- NOTE | 2018-08-16 10:34 | EKG ---
Test Reason : Blood Pressure : / mmHG Vent. Rate : 065 BPM Atrial Rate : 065 BPM P-R Int : 148 ms QRS Dur : 078 ms QT Int : 430 ms P-R-T Axes : 046 043 031 degrees QTc Int : 447 ms NORMAL SINUS RHYTHM WITH SINUS ARRHYTHMIA NORMAL ECG NO PREVIOUS ECGS AVAILABLE Confirmed by JM VENTURA MD ([id number]) on 08/16/2018 10:34:25 AM Referred By: Confirmed By:JM VENTURA MD
== END 2018-08-15 16:21 | disposition home or self-care (01) ==
LOC: JER 09:48
DX: M54.6 Pain in thoracic spine (principal); R10.31 Right lower quadrant pain
CPT/HCPCS: 36415; 71046-TC-FY; 74177-TC; 80053; 81003; 83690; 84703; 85025; 87086; 93005; 93010; 99285-25

== ENCOUNTER 2019-02-20 08:48 | Emergency (ER) | payer OTHER ==
[2019-02-20 09:00] VITALS: BP 104/59; PULSE 61; TEMP 98.1; BMI 26.6
[2019-02-20] MEDS ORDERED: IBUPROFEN 600 MG TABLET (FP) PO ONE ×2 (09:27→09:29)
--- NOTE | 2019-02-20 09:32 | PDOC ---
History of Present Illness - General Chief Complaint: Pain Stated Complaint: BACK PAIN Time Seen by Provider: 02/20/19 09:14 History Source: Patient, Spouse Exam Limitations: No Limitations - History of Present Illness Initial Comments: 02/20/19 09:36 Patient came for evaluation of upper back pain. States has got chronic problems with her back but the past couple days with the onset of a cold and cough thoracic pain that radiates up to her neck and down to her mid back has progressively worsened. Has taken only Tylenol. Occurred: reports: last week Severity: reports: moderate Pain Location: reports: back, neck Modifying Factors: improves with: None Loss of Consciousness: no loss of consciousness Associated Symptoms (Fall): denies symptoms Past History - Travel Traveled outside of the country in the last 30 days: No Close contact w/someone who was outside of country & ill: No - Past Medical History Allergies/Adverse Reactions: Allergies Allergy/AdvReac Type Severity Reaction Status Date / Time No Known Allergies Allergy Verified 02/20/19 08:57 Home Medications: Ambulatory Orders Acetaminophen [Tylenol] 650 mg PO QID PRN 02/20/19 Cyclobenzaprine HCl 10 mg PO Q8H PRN #14 tablet 02/20/19 Asthma: No Cancer: No Cardiac Disorders: No COPD: No Diabetes: Yes (gestational) HTN: No Seizures: No Thyroid Disease: No - Surgical History Abdominal Surgery: Yes (c section x 2) - Reproductive History (#): 2 Para: 1 - Suicide/Smoking/Psychosocial Hx Smoking Status: No Smoking History: Never smoked Have you smoked in the past 12 months: No Number of Cigarettes Smoked Daily: 0 Hx Alcohol Use: No Drug/Substance Use Hx: No Hx Substance Use Treatment: No Review of Systems - Review of Systems Able to Perform ROS?: Yes Is the patient limited Mongolian proficient: Yes Constitutional: Yes: Symptoms Reported, See HPI, Chills, Malaise. No: Fever HEENTM: Yes: Symptoms Reported, See HPI, Nose Congestion Respiratory: Yes: Symptoms reported, See HPI, Cough (non productive) All Other Systems: Reviewed and Negative *Physical Exam - Vital Signs Last Vital Signs Temp Pulse Resp BP Pulse Ox 98.1 F 61 16 104/59 L 100 02/20/19 08:58 02/20/19 08:58 02/20/19 08:58 02/20/19 08:58 02/20/19 08:58 - Physical Exam General Appearance: Yes: Nourished, Appropriately Dressed HEENT: positive: LEVI, Normal ENT Inspection, TMs Normal, Pharynx Normal Neck: positive: Tender (some tenderness along the sternocleidomastoid muscles with reproduce headache pain with pressure at occiput. Range motion is intact severe flexion to the left causes reproduced pain to upper thorax and neck area. ), Supple Respiratory/Chest: positive: Lungs Clear, Normal Breath Sounds Musculoskeletal: positive: Normal Inspection, Muscle Spasm (tender tight musculature primarily on the right side of middle and inferior trapezius musculature with insertion sites at sternocleidomastoid right side worsened.) Neurologic: positive: window maker II-XII NML intact, Fully Oriented, Alert, Normal Mood/ Affect, Normal Response, Motor Strength 5/5 Heart Score/ECG Review - ECG Intrepretation Rhythm: Regular Rhythm - ST and T Non Specific ST-T Wave changes: No - ECG Impressions Normal ECG: Yes Ischemic Changes: No Progress Note - Progress Note Progress Note: Chronic back pain, worsened with recent URI. We'll treat with NSAIDs and cyclobenzaprine *DC/Admit/Observation/Transfer Diagnosis at time of Disposition: Back pain Qualifiers: Back pain location: thoracic back pain Chronicity: acute Back pain laterality: bilateral Qualified Code(s): M54.6 - Pain in thoracic spine - Discharge Dispostion Disposition: HOME Condition at time of disposition: Stable Decision to Admit order: No - Referrals - Patient Instructions Printed Discharge Instructions: DI for Back Strain or Sprain Additional Instructions: Rest, no heavy lifting or exercise until pain is resolved Hot soaks to neck and low back as often as possible/hot showers or Jacuzzis No massage or therapy until spasm is gone Continue ibuprofen 2200 milligrams tablets every 6 hours for the next 3 days then as needed for pain and swelling Cyclobenzaprine 1-10mg every 8 hours as needed for spasm If not significant improvement within 24 hours with medication and rest regime, followup with private physician for change in medications and /or therapy. - Post Discharge Activity Forms/Work/School Notes: Back to Work
--- NOTE | 2019-02-21 09:58 | EKG ---
Test Reason : Blood Pressure : / mmHG Vent. Rate : 062 BPM Atrial Rate : 062 BPM P-R Int : 142 ms QRS Dur : 076 ms QT Int : 442 ms P-R-T Axes : 046 051 041 degrees QTc Int : 448 ms NORMAL SINUS RHYTHM NORMAL ECG WHEN COMPARED WITH ECG OF 15-AUG-2018 11:17, NO SIGNIFICANT CHANGE WAS FOUND Confirmed by MO FENG MD ([id number]) on 02/21/2019 9:58:04 AM Referred By: Confirmed By:MO FENG MD
== END 2019-02-20 09:40 | disposition home or self-care (01) ==
LOC: JERFT 08:48
DX: M54.6 Pain in thoracic spine (principal)
CPT/HCPCS: 93005; 93010; 99281-25

== ENCOUNTER 2019-04-16 10:28 | Emergency (ER) | payer OTHER ==
[2019-04-16 10:35] VITALS: BP 124/66; PULSE 69; TEMP 98.1; BMI 33.5
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
[2019-04-16] MEDS ORDERED: CEPHALEXIN MONOHYDRATE 500 MG CAPSULE (UD) PO ONE (11:08)
[2019-04-16] MEDS ORDERED: SILVER SULFADIAZINE 1% TOP CREAM 50 GM JAR TP ONE ×2 (11:08→11:40)
[2019-04-16] MEDS ORDERED: DIPHTH,PERTUSS(ACELL),TET 0.5 ML DISP.SYRIN IM ONE ×2 (11:08→11:40)
--- NOTE | 2019-04-16 11:08 | PDOC ---
*Physical Exam - Vital Signs Last Vital Signs Temp Pulse Resp BP Pulse Ox 98.1 F 69 18 124/66 99 04/16/19 10:33 04/16/19 10:33 04/16/19 10:33 04/16/19 10:33 04/16/19 10:33 Medical Decision Making - Medical Decision Making 04/16/19 11:08 Pt seen by Midlevel Provider under my direct supervision Ancillary studies reviewed I agree with plan as outlined by Midlevel Provider *DC/Admit/Observation/Transfer Diagnosis at time of Disposition: Burn - Discharge Dispostion Disposition: HOME Condition at time of disposition: Stable - Prescriptions Prescriptions: Cephalexin [Keflex] 500 mg PO Q6H #28 capsule Ibuprofen 600 mg PO Q6H PRN #30 tablet PRN Reason: Pain - Referrals - Patient Instructions Printed Discharge Instructions: How to Take Care of a Burn, DI for Alves Additional Instructions: -Rest with your foot elevated -Apply silvadine cream twice daily and be sure to wash your hands afterwards -Use the YAIR wrap provided and rest with your foot elevated as much as possible -Take Keflex (an antibiotic) as prescribed and ibuprofen as prescribed for pain -Follow up with primary care (referral enclosed) next week to ensure you are improving -Return here for worsening pain, redness, swelling, fever, or any other concerning symptoms Print Language: SWEDISH - Post Discharge Activity Forms/Work/School Notes: Back to Work
[2019-04-16] MEDS ORDERED: IBUPROFEN 600 MG TABLET (FP) PO ONE ×2 (11:30→11:39)
[2019-04-16] MEDS ORDERED: CEPHALEXIN MONOHYDRATE 500 MG CAPSULE (UD) ONE (11:40)
== END 2019-04-16 12:05 | disposition home or self-care (01) ==
LOC: JERFT 10:28
PROC: 3E0234Z Introduction of Serum, Toxoid and Vaccine into Muscle, Percutaneous Approach (ICD-10-PCS; principal; 2019-04-16)
PROC: 2W2SX4Z Dressing of Right Foot using Bandage (ICD-10-PCS; 2019-04-16)
DX: T25.011A Burn of unspecified degree of right ankle, initial encounter (principal); X10.1XXA Contact with hot food, initial encounter; Y93.89 Activity, other specified; Y92.89 Other specified places as the place of occurrence of the external cause; Y99.8 Other external cause status
CPT/HCPCS: 16020; 84703; 90471; 90715; 99282-25

== ENCOUNTER 2019-12-12 18:10 | Emergency (ER) | payer OTHER ==
--- NOTE | 2019-12-12 18:42 | PDOC ---
Rapid Medical Evaluation Chief Complaint: Pain Time Seen by Provider: 12/12/19 18:38 Medical Evaluation: Allergies Allergy/AdvReac Type Severity Reaction Status Date / Time No Known Allergies Allergy Verified 12/12/19 18:39 12/12/19 18:40 This patient had a brief medical evaluation in triage cc: diarrhea x 3 days HPI: Patient reports diarrhea with lower abdominal pain x 3 days. states pain radiating around to left flank. Reports no nausea or vomiting PE: alert and oriented x 3 unlabored breathing mild tenderness in bilateral lower abdomen Orders: labs This patient will proceed to main ed for further evaluation Discharge Disposition - Diagnosis Abdominal pain - Referrals - Patient Instructions - Post Discharge Activity
[2019-12-12 18:45] VITALS: BP 125/82; PULSE 75; TEMP 98.2; BMI 34.3
[2019-12-12 19:24] LABS: BASO % 0.3 % (0-2.0); EOS % 1.2 % (0-4.5); HEMATOCRIT 39.5 % (32.4-45.2); HEMOGLOBIN 12.9 GM/dL (10.7-15.3); LYMPH % 26.8 % (8-40); MCH 26.9 pg (25.7-33.7); MCHC 32.7 g/dl (32.0-36.0); MEAN CELL VOLUME 82.1 fl (80-96); MEAN PLT VOLUME 10.5 fl (7.5-11.1); MONO % 5.9 % (3.8-10.2); NEUT % 65.8 % (42.8-82.8); PLATELET COUNT 228 K/MM3 (134-434); RBC 4.81 M/mm3 (3.60-5.2); RDW 14.1 % (11.6-15.6); WHITE BLOOD COUNT 8.6 K/mm3 (4.0-10.0)
[2019-12-12 19:27] LABS: PH,URINE 6.5 (5.0-8.0); URINE APPEARANCE CLEAR; URINE BILIRUBIN NEGATIVE (NEGATIVE); URINE COLOR YELLOW; URINE GLUCOSE (UA) NEGATIVE (NEGATIVE); URINE KETONE NEGATIVE (NEGATIVE); URINE LEUK ESTERASE NEGATIVE (NEGATIVE); URINE NITRITE NEGATIVE (NEGATIVE); URINE PROTEIN NEGATIVE (NEGATIVE); URINE UROBILINOGEN 0.2 mg/dL (0.2-1.0)
[2019-12-12 19:57] LABS: ALBUMIN 3.9 g/dl (3.4-5.0); BILIRUBIN,TOTAL 0.2 mg/dL (0.2-1); BLOOD UREA NITROGEN 14.3 mg/dL (7-18); CREATININE 0.7 mg/dL (0.55-1.3); POTASSIUM 3.7 mmol/L (3.5-5.1); TOT PROT 7.5 g/dl (6.4-8.2)
--- NOTE | 2019-12-12 21:14 | PDOC ---
History of Present Illness - General Chief Complaint: Pain Stated Complaint: DIARRHEA Time Seen by Provider: 12/12/19 18:38 History Source: Patient - History of Present Illness Initial Comments: 12/12/19 21:09 29 year old female c/o right flank radiating to right groin and right sided abdomen intermittently for the past 3 days. patient reports dysuria, frequency of urination. patient reports slight nausea decreased PO PMHX: none Past History - Past Medical History Allergies/Adverse Reactions: Allergies Allergy/AdvReac Type Severity Reaction Status Date / Time No Known Allergies Allergy Verified 12/12/19 18:39 Home Medications: Ambulatory Orders NK [No Known Home Medication] 12/12/19 Asthma: No Cancer: No Cardiac Disorders: No COPD: No Diabetes: Yes (gestational) HTN: No Seizures: No Thyroid Disease: No - Surgical History Abdominal Surgery: Yes (c section x 2) - Reproductive History (#): 2 Para: 1 - Immunization History Immunization Up to Date: No - Psycho Social/Smoking Cessation Hx Smoking Status: No Smoking History: Never smoked Have you smoked in the past 12 months: No Number of Cigarettes Smoked Daily: 0 Hx Alcohol Use: No Drug/Substance Use Hx: No Hx Substance Use Treatment: No Review of Systems - Review of Systems Able to Perform ROS?: Yes Is the patient limited Urdu proficient: No ABD/GI: Yes: Nausea, Abdominal cramping : Yes: Dysuria, Flank Pain *Physical Exam - Vital Signs Last Vital Signs Temp Pulse Resp BP Pulse Ox 98.2 F 75 18 125/82 99 12/12/19 18:39 12/12/19 18:39 12/12/19 18:39 12/12/19 18:39 12/12/19 18:39 - Physical Exam General Appearance: Yes: Appropriately Dressed Respiratory/Chest: positive: Lungs Clear, Normal Breath Sounds Cardiovascular: positive: Regular Rate Gastrointestinal/Abdominal: positive: Tender (lower abdominal pain) Musculoskeletal: positive: CVA Tenderness (R) Integumentary: positive: Normal Color, Dry, Warm Neurologic: positive: Fully Oriented, Alert, Normal Mood/Affect ED Treatment Course - LABORATORY CBC & Chemistry Diagram: 12/12/19 18:51 12/12/19 18:51 - ADDITIONAL ORDERS Additional order review: Laboratory Results 12/12/19 12/12/19 12/12/19 18:51 18:51 18:51 Sodium 139 Potassium 3.7 Chloride 104 Carbon Dioxide 28 Anion Gap 8 BUN 14.3 Creatinine 0.7 Est GFR (CKD-EPI)AfAm 133.81 Est GFR (CKD-EPI)NonAf 115.45 Random Glucose 85 Calcium 9.0 Total Bilirubin 0.2 AST 17 ALT 31 Alkaline Phosphatase 111 Total Protein 7.5 Albumin 3.9 Urine Color Yellow Urine Appearance Clear Urine pH 6.5 Ur Specific [place] 1.006 L Urine Protein Negative Urine Glucose (UA) Negative Urine Ketones Negative Urine Blood Negative Urine Nitrite Negative Urine Bilirubin Negative Urine Urobilinogen 0.2 Ur Leukocyte Esterase Negative Urine HCG, Qual Negative 12/12/19 18:51 RBC 4.81 MCV 82.1 MCHC 32.7 RDW 14.1 MPV 10.5 Neutrophils % 65.8 Lymphocytes % 26.8 Monocytes % 5.9 Eosinophils % 1.2 Basophils % 0.3 ED Progress Note - Progress Note Progress Note: 12/13/19 02:52 A: ABDOMINAL PAIN/ FLANK PAIN p: CBC CMP ctap Discharge - Discharge Information Problems reviewed: Yes Clinical Impression/Diagnosis: Abdominal pain Qualifiers: Abdominal location: lower abdomen, unspecified Qualified Code(s): R10.30 - Lower abdominal pain, unspecified Condition: Stable Disposition: HOME - Follow up/Referral Referrals: Marcy White DO [Primary Care Provider] - Mina Hammer MD [Staff Physician] - Call tomorrow - Patient Discharge Instructions Additional Instructions: Drink plenty of fluids. It is important that you follow-up with your primary doctor You may take ibuprofen every 6 hours as needed for pain. - Post Discharge Activity Work/Back to School Note: Back to Work
[2019-12-12] MEDS ORDERED: ONDANSETRON 4 MG/2 ML VIAL IVPUSH ONE (21:15)
[2019-12-12] MEDS ORDERED: KETOROLAC TROMETHAMINE 30 MG/1 ML VIAL IVPUSH ONE (21:15)
[2019-12-12] MEDS ORDERED: KETOROLAC TROMETHAMINE 30 MG/1 ML VIAL ONE (21:28)
[2019-12-12] MEDS ORDERED: ONDANSETRON 4 MG/2 ML VIAL ONE (21:28)
== END 2019-12-13 00:04 | disposition home or self-care (01) ==
LOC: JER 18:10
PROC: 3E033GC Introduction of Other Therapeutic Substance into Peripheral Vein, Percutaneous Approach (ICD-10-PCS; principal; 2019-12-12)
PROC: 3E0333Z Introduction of Anti-inflammatory into Peripheral Vein, Percutaneous Approach (ICD-10-PCS; 2019-12-12)
DX: R10.30 Lower abdominal pain, unspecified (principal); Z86.32 Personal history of gestational diabetes
CPT/HCPCS: 36415; 74177-TC; 80053; 81003; 84703; 85025; 87086; 96374; 96375; 99285-25; Q9967

== ENCOUNTER 2021-10-07 06:11 | Day surgery (SDC) | payer OTHER ==
[2021-10-07 06:32] VITALS: BMI 34.3
[2021-10-07] MEDS ORDERED: ACETAMINOPHEN 325 MG TABLET (FP) PO ONE (08:38)
[2021-10-07] MEDS ORDERED: ACETAMINOPHEN 325 MG TABLET (FP) ONE (09:10)
[2021-10-07] MEDS ORDERED: ONDANSETRON 4 MG/2 ML VIAL ONE (09:18)
[2021-10-07] MEDS ORDERED: ONDANSETRON 4 MG/2 ML VIAL IVPUSH ONE (09:20)
[2021-10-07] MEDS ORDERED: SODIUM CHLORIDE 0.9% 500 ML INFUS.BAG IV ONE (09:20)
[2021-10-07 09:38] LABS: BASO % 0.4 % (0-2.0); EOS % 1.2 % (0-4.5); HEMOGLOBIN 12.9 GM/dL (10.7-15.3); LYMPH % 29.8 % (8-40); MCH 26.9 pg (25.7-33.7); MEAN CELL VOLUME 81.7 fl (80-96); MEAN PLT VOLUME 10.1 fl (7.5-11.1); MONO % 5.7 % (3.8-10.2); NEUT % 62.9 % (42.8-82.8); PLATELET COUNT 225 10^3/uL (134-434); RBC 4.78 M/mm3 (3.60-5.2); WHITE BLOOD COUNT 6.5 K/mm3 (4.0-10.0)
[2021-10-07 09:51] LABS: URINE APPEARANCE CLEAR; URINE BILIRUBIN NEGATIVE (NEGATIVE); URINE COLOR YELLOW; URINE GLUCOSE (UA) NEGATIVE (NEGATIVE); URINE KETONE NEGATIVE (NEGATIVE); URINE LEUK ESTERASE NEGATIVE (NEGATIVE); URINE NITRITE NEGATIVE (NEGATIVE); URINE PROTEIN NEGATIVE (NEGATIVE); URINE UROBILINOGEN 0.2 mg/dL (0.2-1.0)
[2021-10-07 10:01] LABS: ALBUMIN 3.4 g/dl (3.4-5.0)
[2021-10-07 10:02] LABS: BLOOD UREA NITROGEN 8.6 mg/dL (7-18)
[2021-10-07 10:04] LABS: CREATININE 0.6 mg/dL (0.55-1.3)
[2021-10-07 10:06] LABS: BILIRUBIN,TOTAL 0.3 mg/dL (0.2-1); TOT PROT 7.2 g/dl (6.4-8.2)
[2021-10-07] MEDS ORDERED: ACETAMINOPHEN 1000 MG/100 ML BAG IVPB PRN (11:24)
[2021-10-07] MEDS ORDERED: LACTATED RINGERS SOLUTION 1,000 ML/1,000 ML INFUS.BAG IV SCH (11:30)
[2021-10-07] MEDS ORDERED: MIDAZOLAM HCL 2 MG/2 ML SINGLE DOSE VIAL ONE ×2 (14:48→16:12)
[2021-10-07 18:12] VITALS: BP 110/60; PULSE 66; TEMP 97.2
== END 2021-10-07 18:15 | disposition home or self-care (01) ==
LOC: JER 06:11 → JASUSAT 11:45 → JERBED 11:47 → JASUSAT 16:37
PROVIDERS: ATTEND Internal Medicine
PROC: 0TF3XZZ Fragmentation in Right Kidney Pelvis, External Approach (ICD-10-PCS; principal; 2021-10-07 15:30)
DX: N20.0 Calculus of kidney (principal)
CPT/HCPCS: 36415; 80053; 81003; 84703; 85025; 87086; 94760; 99285-25; C9803-CS; U0003; U0005

== ENCOUNTER 2021-11-04 06:09 | Emergency (ER) | payer OTHER ==
[2021-11-04 06:51] VITALS: BMI 34.3
[2021-11-04] MEDS ORDERED: KETOROLAC TROMETHAMINE 15 MG/ML VIAL IVPUSH ONE (06:52)
[2021-11-04] MEDS ORDERED: KETOROLAC TROMETHAMINE 15 MG/ML VIAL ONE (07:28)
[2021-11-04] MEDS ORDERED: SODIUM CHLORIDE 0.9% 500 ML INFUS.BAG IV ONE (07:31)
[2021-11-04 08:25] LABS: BASO % 0.4 % (0-2.0); EOS % 1.6 % (0-4.5); HEMATOCRIT 37.5 % (32.4-45.2); HEMOGLOBIN 12.3 GM/dL (10.7-15.3); LYMPH % 33.7 % (8-40); MCHC 32.9 g/dl (32.0-36.0); MEAN PLT VOLUME 9.7 fl (7.5-11.1); MONO % 7.6 % (3.8-10.2); NEUT % 56.7 % (42.8-82.8); PLATELET COUNT 209 10^3/uL (134-434); RBC 4.57 M/mm3 (3.60-5.2); RDW 14.2 % (11.6-15.6); WHITE BLOOD COUNT 5.3 K/mm3 (4.0-10.0)
[2021-11-04 08:26] LABS: PH,URINE 5.5 (5.0-8.0); URINE APPEARANCE CLEAR; URINE BILIRUBIN NEGATIVE (NEGATIVE); URINE COLOR YELLOW; URINE GLUCOSE (UA) NEGATIVE (NEGATIVE); URINE KETONE NEGATIVE (NEGATIVE); URINE LEUK ESTERASE NEGATIVE (NEGATIVE); URINE NITRITE NEGATIVE (NEGATIVE); URINE PROTEIN NEGATIVE (NEGATIVE); URINE UROBILINOGEN 0.2 mg/dL (0.2-1.0)
[2021-11-04 08:29] LABS: HCG,QUALITATIVE URINE Negative
[2021-11-04 08:41] LABS: CALCIUM 8.9 mg/dL (8.5-10.1)
[2021-11-04 08:42] LABS: ALBUMIN 3.6 g/dl (3.4-5.0); BLOOD UREA NITROGEN 9.2 mg/dL (7-18)
[2021-11-04 08:45] LABS: CREATININE 0.6 mg/dL (0.55-1.3)
[2021-11-04 08:46] LABS: BILIRUBIN,TOTAL 0.4 mg/dL (0.2-1)
[2021-11-04 10:18] VITALS: BP 112/66; PULSE 52; TEMP 97.6
== END 2021-11-04 11:40 | disposition home or self-care (01) ==
LOC: JER 06:09
PROC: 3E0333Z Introduction of Anti-inflammatory into Peripheral Vein, Percutaneous Approach (ICD-10-PCS; principal; 2021-11-04)
DX: R10.9 Unspecified abdominal pain (principal)
CPT/HCPCS: 36415; 74176-TC; 80053; 81003; 84703; 85025; 87086; 87186; 99284-25

== ENCOUNTER 2022-04-06 16:56 | Emergency (ER) | payer OTHER ==
[2022-04-06 17:12] VITALS: TEMP 98.1; BMI 33.5
[2022-04-06] MEDS ORDERED: SODIUM CHLORIDE 0.9% 500 ML INFUS.BAG IV ONE (18:28)
[2022-04-06 19:36] LABS: BASO % 0.4 % (0-2.0); EOS % 1.1 % (0-4.5); HEMATOCRIT 36.7 % (32.4-45.2); HEMOGLOBIN 12.3 GM/dL (10.7-15.3); LYMPH % 24.7 % (8-40); MCH 27.1 pg (25.7-33.7); MCHC 33.4 g/dl (32.0-36.0); MEAN CELL VOLUME 81.1 fl (80-96); MEAN PLT VOLUME 9.5 fl (7.5-11.1); MONO % 6.5 % (3.8-10.2); NEUT % 67.3 % (42.8-82.8); PLATELET COUNT 226 10^3/uL (134-434); RBC 4.53 M/mm3 (3.60-5.2); RDW 14.2 % (11.6-15.6); WHITE BLOOD COUNT 7.2 K/mm3 (4.0-10.0)
[2022-04-06 19:39] LABS: EPI CELLS 7 /uL (0-25.1); HCG,QUALITATIVE URINE Negative; HYALINE CASTS 0 /uL (0-3.1); URINE APPEARANCE CLEAR; URINE BACTERIA 139 /uL (0-1359); URINE BILIRUBIN NEGATIVE (NEGATIVE); URINE COLOR YELLOW; URINE GLUCOSE (UA) NEGATIVE (NEGATIVE); URINE KETONE NEGATIVE (NEGATIVE); URINE LEUK ESTERASE NEGATIVE (NEGATIVE); URINE NITRITE NEGATIVE (NEGATIVE); URINE PROTEIN NEGATIVE (NEGATIVE); URINE RBC 4 /uL (0-23.9); URINE UROBILINOGEN 0.2 mg/dL (0.2-1.0); URINE WBC 3 /uL (0-25.8)
[2022-04-06 19:46] VITALS: BP 100/76; PULSE 77
[2022-04-06 19:56] LABS: CALCIUM 8.9 mg/dL (8.5-10.1)
[2022-04-06 19:57] LABS: ALBUMIN 3.6 g/dl (3.4-5.0); BLOOD UREA NITROGEN 12.9 mg/dL (7-18)
[2022-04-06 20:00] LABS: CREATININE 0.7 mg/dL (0.55-1.3)
[2022-04-06 20:02] LABS: BILIRUBIN,TOTAL 0.2 mg/dL (0.2-1); TOT PROT 7.2 g/dl (6.4-8.2)
[2022-04-06] MEDS ORDERED: ACETAMINOPHEN 1000 MG/100 ML BAG IVPB ONE (20:05)
[2022-04-06] MEDS ORDERED: ACETAMINOPHEN INJECTION 100 ML IVPB ONE (20:10)
[2022-04-06] MEDS ORDERED: CEPHALEXIN MONOHYDRATE 500 MG CAPSULE (UD) PO ONE (20:19)
[2022-04-06] MEDS ORDERED: CEPHALEXIN MONOHYDRATE 500 MG CAPSULE (UD) ONE (21:10)
== END 2022-04-06 21:14 | disposition home or self-care (01) ==
LOC: JER 16:56
PROC: 3E0333Z Introduction of Anti-inflammatory into Peripheral Vein, Percutaneous Approach (ICD-10-PCS; principal; 2022-04-06)
DX: R10.9 Unspecified abdominal pain (principal)
CPT/HCPCS: 36415; 76775-TC; 80053; 81003; 84703; 85025; 87086; 99284-25

== ENCOUNTER 2022-04-07 06:46 | Inpatient (IN) | payer OTHER ==
[2022-04-07 07:10] VITALS: BMI 33.5
[2022-04-07] MEDS ORDERED: LACTATED RINGERS SOLUTION 1000 ML INFUS.BAG IV ONE (07:26)
[2022-04-07] MEDS ORDERED: KETOROLAC TROMETHAMINE 15 MG/ML VIAL IVPUSH ONE (07:26)
[2022-04-07] MEDS ORDERED: KETOROLAC TROMETHAMINE 15 MG/ML VIAL ONE (08:14)
[2022-04-07 08:44] LABS: BASO % 0.4 % (0-2.0); EOS % 1.7 % (0-4.5); HEMATOCRIT 37.4 % (32.4-45.2); HEMOGLOBIN 12.4 GM/dL (10.7-15.3); LYMPH % 36.1 % (8-40); MCH 26.9 pg (25.7-33.7); MCHC 33.1 g/dl (32.0-36.0); MEAN CELL VOLUME 81.3 fl (80-96); MEAN PLT VOLUME 9.8 fl (7.5-11.1); MONO % 5.5 % (3.8-10.2); NEUT % 56.3 % (42.8-82.8); PLATELET COUNT 210 10^3/uL (134-434); RDW 14.5 % (11.6-15.6); WHITE BLOOD COUNT 5.7 K/mm3 (4.0-10.0)
[2022-04-07 08:59] LABS: CALCIUM 8.6 mg/dL (8.5-10.1)
[2022-04-07 09:00] LABS: ALBUMIN 3.5 g/dl (3.4-5.0); BLOOD UREA NITROGEN 11.7 mg/dL (7-18)
[2022-04-07 09:03] LABS: CREATININE 0.6 mg/dL (0.55-1.3)
[2022-04-07 09:04] LABS: BILIRUBIN,TOTAL 0.3 mg/dL (0.2-1); TOT PROT 7.1 g/dl (6.4-8.2)
[2022-04-07] MEDS ORDERED: KETOROLAC TROMETHAMINE 15 MG/ML VIAL IVPUSH PRN ×2 (14:39→14:47)
[2022-04-07] MEDS ORDERED: ACETAMINOPHEN 325 MG TABLET (FP) PO PRN ×2 (14:39→14:47)
[2022-04-07] MEDS ORDERED: SODIUM CHLORIDE 1,000 ML IV SCH ×2 (14:45)
[2022-04-07] MEDS ORDERED: MIDAZOLAM HCL 2 MG/2 ML SINGLE DOSE VIAL ONE (18:22)
[2022-04-07] MEDS ORDERED: DEXAMETHASONE SOD PHOSPHATE 4 MG/1 ML VIAL ONE (19:00)
[2022-04-07 19:19] VITALS: TEMP 97.7
[2022-04-07 20:05] VITALS: BP 128/72; PULSE 75
== END 2022-04-07 20:00 | disposition home or self-care (01) | DRG 465 ==
LOC: JER 06:46 → JERBED 14:25
PROVIDERS: ADMIT Internal Medicine; ATTEND Internal Medicine
PROC: 0TF4XZZ Fragmentation in Left Kidney Pelvis, External Approach (ICD-10-PCS; principal; 2022-04-07 15:30)
DX: N20.0 Calculus of kidney (principal); K76.0 Fatty (change of) liver, not elsewhere classified; R16.0 Hepatomegaly, not elsewhere classified
CPT/HCPCS: 36415; 74176-TC; 80053; 85025; 99285-25; C9803-CS; U0003; U0005

== ENCOUNTER 2023-07-18 23:01 | Emergency (ER) | payer OTHER ==
[2023-07-18 23:09] VITALS: BP 123/76; PULSE 79; RESP 18; TEMP 98; BMI 34.7
[2023-07-18] MEDS ORDERED: IBUPROFEN 600 MG TABLET (FP) PO ONE ×2 (23:34→23:40)
[2023-07-18 23:46] LABS: BASO % 0.5 % (0-2.0); EOS % 1.1 % (0-4.5); HEMATOCRIT 32.9 % (32.4-45.2); HEMOGLOBIN 11.5 GM/dL (10.7-15.3); LYMPH % 35.2 % (8-40); MCHC 34.9 g/dl (32.0-36.0); MEAN CELL VOLUME 80.3 fl (80-96); MEAN PLT VOLUME 9.9 fl (7.5-11.1); NEUT % 57.2 % (42.8-82.8); PLATELET COUNT 198 10^3/uL (134-434); RDW 13.5 % (11.6-15.6); WHITE BLOOD COUNT 6.9 K/mm3 (4.0-10.0)
[2023-07-18] MEDS ORDERED: SODIUM CHLORIDE 0.9% 500 ML INFUS.BAG IV ONE (23:59)
[2023-07-19 00:06] LABS: PH,URINE 6.5 (5.0-8.0); URINE APPEARANCE Clear; URINE BILIRUBIN Negative (NEGATIVE); URINE COLOR Yellow; URINE GLUCOSE (UA) Negative (NEGATIVE); URINE KETONE Negative (NEGATIVE); URINE LEUK ESTERASE Negative (NEGATIVE); URINE NITRITE Negative (NEGATIVE); URINE PROTEIN Negative (NEGATIVE); URINE UROBILINOGEN 0.2 mg/dL (0.2-1.0)
[2023-07-19 00:28] LABS: POTASSIUM 3.5 mmol/L (3.5-5.1)
[2023-07-19 00:30] LABS: CALCIUM 8.3 mg/dL (8.5-10.1)
[2023-07-19 00:31] LABS: ALBUMIN 3.4 g/dl (3.4-5.0); BLOOD UREA NITROGEN 9.5 mg/dL (7-18)
[2023-07-19 00:34] LABS: CREATININE 0.7 mg/dL (0.55-1.3)
[2023-07-19 00:35] LABS: TOT PROT 6.4 g/dl (6.4-8.2)
[2023-07-19 00:36] LABS: BILIRUBIN,TOTAL 0.3 mg/dL (0.2-1)
[2023-07-19 01:46] LABS: EPI CELLS 38.8 /uL (0-25.1); HYALINE CASTS 0.43 /uL (0-3.1); URINE BACTERIA 3390.3 /uL (0-1359); URINE RBC 24.8 /uL (0-23.9); URINE WBC 29.3 /uL (0-25.8)
[2023-07-19] MEDS ORDERED: NITROFURANTOIN MACROCRYSTAL 50 MG CAPSULE (FP) PO SCH (02:15)
[2023-07-19] MEDS ORDERED: FLUCONAZOLE 150 MG TABLET PO ONE ×2 (02:28→02:29)
== END 2023-07-19 02:19 | disposition home or self-care (01) ==
LOC: JER 23:01
DX: R10.30 Lower abdominal pain, unspecified (principal); R11.0 Nausea; N39.0 Urinary tract infection, site not specified
CPT/HCPCS: 36415; 74176-TC; 80053; 81003; 84703; 85025; 99284-25

== ENCOUNTER 2023-07-24 17:38 | Emergency (ER) | payer OTHER ==
[2023-07-24 17:54] VITALS: RESP 16; BMI 30.9
[2023-07-24] MEDS ORDERED: ACETAMINOPHEN 1000 MG/100 ML BAG IVPB ONE (18:32)
[2023-07-24] MEDS ORDERED: ACETAMINOPHEN INJECTION 100 ML IVPB ONE (18:38)
[2023-07-24 19:31] LABS: BASO % 0.2 % (0-2.0); EOS % 0.5 % (0-4.5); HEMATOCRIT 36.8 % (32.4-45.2); HEMOGLOBIN 12.7 GM/dL (10.7-15.3); LYMPH % 14.5 % (8-40); MCH 27.8 pg (25.7-33.7); MCHC 34.5 g/dl (32.0-36.0); MEAN CELL VOLUME 80.5 fl (80-96); MEAN PLT VOLUME 9.8 fl (7.5-11.1); MONO % 5.2 % (3.8-10.2); NEUT % 79.6 % (42.8-82.8); PLATELET COUNT 213 10^3/uL (134-434); RBC 4.57 M/mm3 (3.60-5.2); RDW 13.8 % (11.6-15.6); WHITE BLOOD COUNT 10.1 K/mm3 (4.0-10.0)
[2023-07-24 19:49] LABS: POTASSIUM 3.7 mmol/L (3.5-5.1)
[2023-07-24 19:53] LABS: ALBUMIN 3.9 g/dl (3.4-5.0); BLOOD UREA NITROGEN 7.8 mg/dL (7-18); CALCIUM 8.6 mg/dL (8.5-10.1)
[2023-07-24] MEDS ORDERED: SODIUM PHOSPHATE/NA BIPHOS 133 ML ENEMA PR ONE (19:55)
[2023-07-24] MEDS ORDERED: MAGNESIUM CITRATE 300 ML BOTTLE PO ONE (19:55)
[2023-07-24 19:56] LABS: CREATININE 0.6 mg/dL (0.55-1.3)
[2023-07-24 19:57] LABS: BILIRUBIN,TOTAL 0.8 mg/dL (0.2-1); TOT PROT 7.2 g/dl (6.4-8.2)
[2023-07-24] MEDS ORDERED: MAGNESIUM CITRATE 300 ML BOTTLE ONE (20:06)
[2023-07-24 20:33] LABS: EPI CELLS 11 /uL (0-25.1); HYALINE CASTS 1 /uL (0-3.1); PH,URINE 6.5 (5.0-8.0); URINE APPEARANCE CLEAR; URINE BACTERIA 241 /uL (0-1359); URINE BILIRUBIN NEGATIVE (NEGATIVE); URINE COLOR YELLOW; URINE GLUCOSE (UA) NEGATIVE (NEGATIVE); URINE KETONE 3+ (NEGATIVE); URINE LEUK ESTERASE NEGATIVE (NEGATIVE); URINE NITRITE NEGATIVE (NEGATIVE); URINE PROTEIN NEGATIVE (NEGATIVE); URINE RBC 42 /uL (0-23.9); URINE UROBILINOGEN 0.2 mg/dL (0.2-1.0); URINE WBC 4 /uL (0-25.8)
[2023-07-24] MEDS ORDERED: SODIUM CHLORIDE 0.9% 500 ML INFUS.BAG IV ONE (21:52)
[2023-07-24] MEDS ORDERED: BISACODYL 10 MG SUPP.RECT PR ONE (22:02)
[2023-07-24] MEDS ORDERED: MAG HYDROX/AL HYDROX/SIMETH 30 ML UNIT-DOSE CUP PO ONE (22:03)
[2023-07-24] MEDS ORDERED: FAMOTIDINE 20 MG/50 ML IVPB 20 MG/50 ML MG IVPB ONE ×2 (22:03→22:54)
[2023-07-24] MEDS ORDERED: ONDANSETRON 4 MG/2 ML VIAL IVPUSH ONE (22:12)
[2023-07-24] MEDS ORDERED: BISACODYL 10 MG SUPP.RECT ONE (22:53)
[2023-07-24] MEDS ORDERED: MAG HYDROX/AL HYDROX/SIMETH 30 ML UNIT-DOSE CUP ONE (22:54)
[2023-07-24] MEDS ORDERED: ONDANSETRON 4 MG/2 ML VIAL ONE (22:54)
[2023-07-25] MEDS ORDERED: CEFTRIAXONE 1 GM in DEXTROSE 5%-WATER - 100 ML IVPB ONE (01:47)
[2023-07-25] MEDS ORDERED: CEFTRIAXONE 1 GM/50 ML BAG ONE (01:54)
[2023-07-25 01:57] VITALS: BP 126/69; PULSE 69; TEMP 98.4
[2023-07-25] MEDS ORDERED: PEG 3350/NA SULF BICARB CL/KCL 4000 ML SOLN.RECON PO ONE (02:00)
[2023-07-25] MEDS ORDERED: KETOROLAC TROMETHAMINE 15 MG/ML VIAL IVPUSH ONE (02:15)
[2023-07-25] MEDS ORDERED: KETOROLAC TROMETHAMINE 15 MG/ML VIAL ONE (02:20)
== END 2023-07-25 04:30 | disposition home or self-care (01) ==
LOC: JER 17:38
PROC: 3E033GC Introduction of Other Therapeutic Substance into Peripheral Vein, Percutaneous Approach (ICD-10-PCS; principal; 2023-07-24)
PROC: 3E033NZ Introduction of Analgesics, Hypnotics, Sedatives into Peripheral Vein, Percutaneous Approach (ICD-10-PCS; 2023-07-24)
PROC: 3E033GC Introduction of Other Therapeutic Substance into Peripheral Vein, Percutaneous Approach (ICD-10-PCS; 2023-07-24)
PROC: 3E03329 Introduction of Other Anti-infective into Peripheral Vein, Percutaneous Approach (ICD-10-PCS; 2023-07-25)
PROC: 3E0333Z Introduction of Anti-inflammatory into Peripheral Vein, Percutaneous Approach (ICD-10-PCS; 2023-07-25)
DX: R10.30 Lower abdominal pain, unspecified (principal); K59.00 Constipation, unspecified
CPT/HCPCS: 36415; 74177-TC; 80053; 81003; 84703; 85025; 87086; 99285-25; Q9967

== ENCOUNTER 2023-07-25 15:51 | Emergency (ER) | payer OTHER ==
[2023-07-25 16:06] VITALS: BP 131/85; PULSE 98; RESP 16; TEMP 98.2; BMI 28.3
[2023-07-25] MEDS ORDERED: MAGNESIUM HYDROX 2400MG/30ML ORAL SUSPENSION 30 ML CUP PO ONE (17:33)
[2023-07-25] MEDS ORDERED: SODIUM PHOSPHATE/NA BIPHOS 133 ML ENEMA PR ONE (17:35)
[2023-07-25] MEDS ORDERED: MAGNESIUM HYDROX 2400MG/30ML ORAL SUSPENSION 30 ML CUP ONE (17:54)
[2023-07-25] MEDS ORDERED: ACETAMINOPHEN 1000 MG/100 ML BAG IVPB ONE (17:56)
[2023-07-25] MEDS ORDERED: ONDANSETRON 4 MG/2 ML VIAL IVPUSH ONE (18:04)
[2023-07-25] MEDS ORDERED: ONDANSETRON 4 MG/2 ML VIAL ONE (18:06)
[2023-07-25] MEDS ORDERED: ACETAMINOPHEN INJECTION 100 ML IVPB ONE (18:06)
[2023-07-25 18:27] LABS: BASO % 0.2 % (0-2.0); HEMATOCRIT 39.1 % (32.4-45.2); HEMOGLOBIN 13.4 GM/dL (10.7-15.3); LYMPH % 5.9 % (8-40); MCH 27.7 pg (25.7-33.7); MCHC 34.2 g/dl (32.0-36.0); MEAN CELL VOLUME 80.9 fl (80-96); MEAN PLT VOLUME 9.8 fl (7.5-11.1); MONO % 3.7 % (3.8-10.2); NEUT % 90.2 % (42.8-82.8); PLATELET COUNT 256 10^3/uL (134-434); RBC 4.83 M/mm3 (3.60-5.2); WHITE BLOOD COUNT 14.7 K/mm3 (4.0-10.0)
[2023-07-25 18:34] LABS: INR 1.21 (0.83-1.09)
[2023-07-25 18:37] LABS: ACTIVATED PTT 34.1 SECONDS (25.2-36.5)
[2023-07-25] MEDS ORDERED: SODIUM CHLORIDE 0.9% 500 ML INFUS.BAG IV ONE (18:53)
[2023-07-25 19:01] LABS: POTASSIUM 3.8 mmol/L (3.5-5.1)
[2023-07-25 19:02] LABS: CALCIUM 8.5 mg/dL (8.5-10.1)
[2023-07-25 19:06] LABS: CREATININE 0.5 mg/dL (0.55-1.3)
[2023-07-25 19:07] LABS: BILIRUBIN,TOTAL 0.8 mg/dL (0.2-1); TOT PROT 7.8 g/dl (6.4-8.2)
[2023-07-25 19:08] LABS: BLOOD UREA NITROGEN 6.2 mg/dL (7-18)
[2023-07-25] MEDS ORDERED: LACTULOSE 20 GM/30 ML UDC (FOR ORAL USE ONLY) PO ONE (19:36)
[2023-07-25] MEDS ORDERED: LACTULOSE 20 GM/30 ML UDC (FOR ORAL USE ONLY) ONE (19:36)
[2023-07-25 19:58] LABS: MAGNESIUM 2.1 mg/dL (1.8-2.4)
[2023-07-25] MEDS ORDERED: AMOX TR/POT CLAV 875MG/125MG TABLETS (FP) PO ONE ×2 (20:20)
[2023-07-25] MEDS ORDERED: AMOX TR/POT CLAV 875MG/125MG TABLETS (FP) ONE (20:29)
== END 2023-07-25 20:46 | disposition home or self-care (01) ==
LOC: JER 15:51
PROC: 3E033NZ Introduction of Analgesics, Hypnotics, Sedatives into Peripheral Vein, Percutaneous Approach (ICD-10-PCS; principal; 2023-07-25)
PROC: 3E033GC Introduction of Other Therapeutic Substance into Peripheral Vein, Percutaneous Approach (ICD-10-PCS; 2023-07-25)
DX: K59.09 Other constipation (principal)
CPT/HCPCS: 36415; 80053; 83735; 85025; 85610; 85730; 86850; 86900; 86901; 93005; 93010; 99284-25

== ENCOUNTER 2023-09-27 17:30 | Emergency (ER) | payer OTHER ==
[2023-09-27 17:40] VITALS: BP 109/67; PULSE 79; RESP 18; TEMP 98.3; BMI 24.9
[2023-09-27 20:35] LABS: HCG,QUALITATIVE URINE Negative
[2023-09-27 20:44] LABS: EPI CELLS 6 /uL (0-25.1); HYALINE CASTS 0 /uL (0-3.1); URINE APPEARANCE CLOUDY; URINE BACTERIA 3109 /uL (0-1359); URINE BILIRUBIN NEGATIVE (NEGATIVE); URINE COLOR YELLOW; URINE GLUCOSE (UA) NEGATIVE (NEGATIVE); URINE KETONE NEGATIVE (NEGATIVE); URINE LEUK ESTERASE 3+ (NEGATIVE); URINE NITRITE NEGATIVE (NEGATIVE); URINE PROTEIN TRACE (NEGATIVE); URINE RBC 27 /uL (0-23.9); URINE UROBILINOGEN 0.2 mg/dL (0.2-1.0); URINE WBC 1883 /uL (0-25.8)
[2023-09-27] MEDS ORDERED: NITROFURANTOIN MONOHYD/M-CRYST 100 MG CAPSULE PO ONE (20:45)
[2023-09-27] MEDS ORDERED: NITROFURANTOIN MACROCRYSTAL 50 MG CAPSULE (FP) ONE (21:15)
== END 2023-09-27 20:55 | disposition home or self-care (01) ==
LOC: JERFT 17:30
DX: N39.0 Urinary tract infection, site not specified (principal)
CPT/HCPCS: 81003; 84703; 87086; 87186; 99283-25

== ENCOUNTER 2024-04-12 18:03 | Emergency (ER) | payer OTHER ==
[2024-04-12 18:22] VITALS: BP 121/60; PULSE 69; RESP 20; TEMP 98.7; BMI 27.8
[2024-04-12 19:10] LABS: HCG,QUALITATIVE URINE Negative
[2024-04-12 19:12] LABS: EPI CELLS 14 /uL (0-25.1); HYALINE CASTS 0 /uL (0-3.1); PH,URINE 6.5 (5.0-8.0); URINE APPEARANCE CLEAR; URINE BACTERIA 262 /uL (0-1359); URINE BILIRUBIN NEGATIVE (NEGATIVE); URINE COLOR YELLOW; URINE GLUCOSE (UA) NEGATIVE (NEGATIVE); URINE KETONE NEGATIVE (NEGATIVE); URINE LEUK ESTERASE TRACE (NEGATIVE); URINE NITRITE NEGATIVE (NEGATIVE); URINE PROTEIN NEGATIVE (NEGATIVE); URINE RBC 8 /uL (0-23.9); URINE UROBILINOGEN 0.2 mg/dL (0.2-1.0); URINE WBC 18 /uL (0-25.8)
[2024-04-12] MEDS: IBUPROFEN 600 MG TABLET (FP) PO ONE (20:14)
[2024-04-12] MEDS ORDERED: IBUPROFEN 600 MG TABLET (FP) PO ONE (20:15)
== END 2024-04-12 20:50 | disposition home or self-care (01) ==
LOC: JER 18:03 → JERFT 18:03
DX: D25.2 Subserosal leiomyoma of uterus (principal); N83.201 Unspecified ovarian cyst, right side; N83.202 Unspecified ovarian cyst, left side; R10.31 Right lower quadrant pain; R10.32 Left lower quadrant pain; R10.2 Pelvic and perineal pain
CPT/HCPCS: 76830-TC; 81003; 84703; 87086; 99284-25

== ENCOUNTER 2024-04-15 11:57 | Emergency (ER) | payer OTHER ==
[2024-04-15 12:19] VITALS: BP 119/72; PULSE 63; RESP 17; TEMP 97.5; BMI 28.8
[2024-04-15 12:29] LABS: URINE APPEARANCE CLEAR; URINE BILIRUBIN NEGATIVE (NEGATIVE); URINE COLOR YELLOW; URINE GLUCOSE (UA) NEGATIVE (NEGATIVE); URINE KETONE NEGATIVE (NEGATIVE); URINE LEUK ESTERASE NEGATIVE (NEGATIVE); URINE NITRITE NEGATIVE (NEGATIVE); URINE PROTEIN NEGATIVE (NEGATIVE); URINE UROBILINOGEN 0.2 mg/dL (0.2-1.0)
[2024-04-15 12:32] LABS: HCG,QUALITATIVE URINE Negative
[2024-04-15] MEDS ORDERED: FLUCONAZOLE 150 MG TABLET PO ONE (14:09)
[2024-04-15] MEDS: FLUCONAZOLE 50 MG TABLET PO ONE (14:14)
== END 2024-04-15 14:29 | disposition home or self-care (01) ==
LOC: JERFT 11:57
DX: R30.0 Dysuria (principal); B37.31 Acute candidiasis of vulva and vagina; L29.2 Pruritus vulvae; R10.30 Lower abdominal pain, unspecified; N89.8 Other specified noninflammatory disorders of vagina
CPT/HCPCS: 36415; 81003; 84703; 87070; 87086; 87205; 87491; 87591; 87661; 99283-25